=== PATIENT | female | born 1970 | race Caucasian/White ===

== ENCOUNTER → 2016-03-29 | Outpatient (REF) | payer OTHER ==
[~2016-03-29] MED LIST: ACET500C PO; AZO1TAB; BENA25TA PO; DEXI60CA PO; DICY10SO PO; DIPH12.527 PO; EPIP0.3I2 IJ; FLUTISP; PROA1AER IN; PROB1TAB PO; [UNRECOGNIZED DRUG - CODE] PO; [UNRECOGNIZED DRUG - OTHER] TOP
== END ==
LOC: M SMT 17:02
PROVIDERS: ATTEND Nurse Practitioner Family
DX: N20.0 Calculus of kidney (principal)

== ENCOUNTER → 2016-04-11 | Outpatient (REF) | payer OTHER ==
[~2016-04-11] MED LIST changes: -BENA25TA PO; +BENA25TA9 PO; +PREV15CA11 PO; +[UNRECOGNIZED DRUG - CODE] PO; +[UNRECOGNIZED DRUG - CODE] PO; +[UNRECOGNIZED DRUG - OTHER] PO
== END ==
LOC: M SMT 13:18
PROVIDERS: ATTEND Nurse Practitioner Family
DX: Z01.818 Encounter for other preprocedural examination (principal); R35.0 Frequency of micturition

== ENCOUNTER → 2016-04-20 | Day surgery (SDC) | payer OTHER ==
[~2016-04-20] VITALS: Ht 157.5 cm; Wt 73.9 kg
[~2016-04-20] MED LIST changes: +CONRAY-60 60% 50ML VIAL (Q9961) XX ONE; +KETOROLAC 30 MG/ML VIAL (J1885) As Ordered ONE; +KETOROLAC 30 MG/ML VIAL (J1885) IV SCH; +LIDOCAINE 2% INJ 100 MG/5 ML SDV (FOR ANES.) As Ordered ONE; +LR 1,000 ML IV SCH; +MEPERIDINE INJ 25 MG/ML VIAL (J2175) IV PRN; +METOCLOPRAMIDE INJ 10MG/2ML VIAL (J2765) As Ordered ONE; +METOCLOPRAMIDE INJ 10MG/2ML VIAL (J2765) IV PRN; +MIDAZOLAM INJ 2 MG/2 ML VIAL (J2250) As Ordered ONE; +ONDANSETRON 4MG/2ML VIAL (J2405) As Ordered ONE; +ONDANSETRON 4MG/2ML VIAL (J2405) IV PRN; +OXYC1TAB23 PO; +PERCOCET 5MG/325MG TAB PO PRN; +PROPOFOL 200 MG/20 ML VIAL As Ordered ONE; +fentaNYL 100 MCG/2 ML INJECTION (J3010) As Ordered ONE
[2016-04-20 13:56] LABS: CONTROL LINE UCG INT CTR LINE PRESENT
[2016-04-20] MEDS: fentaNYL 100 MCG/2 ML INJECTION (J3010) IV PRN ×2 (17:35→17:40)
[2016-04-20 19:45] VITALS: BP 126/63
--- NOTE | 2016-04-21 06:12 | RO ---
DATE OF PROCEDURE: 04/20/2016 PREPROCEDURE DIAGNOSIS: Left ureteral stone. POSTPROCEDURE DIAGNOSIS: Left ureteral stone. PROCEDURE: Cystoscopy, left ureteroscopy with basket extraction of stone. SURGEON: Dr. Casimiro Jacobs MOLD TOOLING TECHNICIAN: None. ANESTHESIA: General. OPERATIVE INDICATIONS: This is a 45-year-old female who was found to have an obstructing 3 mm left ureteropelvic junction stone. She was given a trial of passage and continued to have persistent pain raising concern that she did not pass her stone. She was therefore brought to the operating room today for the above listed procedure. DESCRIPTION OF PROCEDURE: The patient was brought to the operating room and general anesthesia was induced. Prophylactic antibiotics were infused. She was then placed in dorsal lithotomy position and prepped and draped in the usual sterile fashion. A rigid cystoscope was then inserted into the urethral meatus and advanced into the bladder. Once within the bladder, a wire was advanced up the left collecting system and secured to the drape to serve as a safety wire. I then went up the left ureter with a ureteroscope and of note no stones were seen within the ureter. The kidney was then thoroughly examined and within the lower pole calyx a 3 mm stone was seen. The stone must have been pushed back up into the kidney when the wire was advanced. The stone was then grasped with the basket and withdrawn from the left kidney. No additional stones were seen in either the kidney or the ureter. There did not appear to be much ureteral inflammation and therefore decision was made not to leave a stent. Therefore, the ureteroscope was withdrawn and the wire was removed. The bladder was then emptied of all fluid and this marked the conclusion of the procedure. The patient was then taken out of the dorsal lithotomy position, awakened from anesthesia and transported to the recovery room in stable condition. ESTIMATED BLOOD LOSS: 0 mL. COMPLICATIONS: None. SPECIMEN: Kidney stone. PLAN: The patient will be brought back to be seen in the clinic in a few weeks for a postoperative visit. JEANNA
== END ==
LOC: M SDC 12:20
PROVIDERS: ATTEND Urology
DX: N20.0 Calculus of kidney (principal); F41.9 Anxiety disorder, unspecified; J45.20 Mild intermittent asthma, uncomplicated; K21.9 Gastro-esophageal reflux disease without esophagitis; E78.5 Hyperlipidemia, unspecified; K58.9 Irritable bowel syndrome, unspecified; Z79.899 Other long term (current) drug therapy; Z91.011 Allergy to milk products; Z88.5 Allergy status to narcotic agent; Z88.1 Allergy status to other antibiotic agents; Z88.8 Allergy status to other drugs, medicaments and biological substances; Z87.442 Personal history of urinary calculi
CPT/HCPCS: 52352; 74420; 82360; 84703; 88300; C2617; J0690; J1885; J2250; J2405; J2765; J3010; Q9961

== ENCOUNTER → 2016-04-27 | Outpatient (REF) | payer OTHER ==
[~2016-04-27] MED LIST changes: -CONRAY-60 60% 50ML VIAL (Q9961) XX ONE; -KETOROLAC 30 MG/ML VIAL (J1885) As Ordered ONE; -KETOROLAC 30 MG/ML VIAL (J1885) IV SCH; -LIDOCAINE 2% INJ 100 MG/5 ML SDV (FOR ANES.) As Ordered ONE; -LR 1,000 ML IV SCH; -MEPERIDINE INJ 25 MG/ML VIAL (J2175) IV PRN; -METOCLOPRAMIDE INJ 10MG/2ML VIAL (J2765) As Ordered ONE; -METOCLOPRAMIDE INJ 10MG/2ML VIAL (J2765) IV PRN; -MIDAZOLAM INJ 2 MG/2 ML VIAL (J2250) As Ordered ONE; -ONDANSETRON 4MG/2ML VIAL (J2405) As Ordered ONE; -ONDANSETRON 4MG/2ML VIAL (J2405) IV PRN; -PERCOCET 5MG/325MG TAB PO PRN; -PROPOFOL 200 MG/20 ML VIAL As Ordered ONE; -fentaNYL 100 MCG/2 ML INJECTION (J3010) As Ordered ONE
== END ==
LOC: M SMT 12:51
PROVIDERS: ATTEND Nurse Practitioner Family
DX: R10.9 Unspecified abdominal pain (principal)

== ENCOUNTER → 2016-05-18 | Outpatient (CLI) | payer OTHER ==
--- NOTE | 2016-05-18 18:48 | REP ---
RENAL ULTRASOUND: REASON: Left flank pain status-post ureteroscopy last March. No prior renal ultrasound examinations for comparison. FINDINGS: Multiple ultrasonographic images of the right kidney show the right kidney to measure 11.3 x 4.8 x 4.5 cm. The left kidney measures 10.7 x 5.1 x 5.5 cm. The renal cortical echotexture is unremarkable. There are no masses. There is good corticomedullary differentiation. There is no hydronephrosis. There are no perinephric fluid collections. Multiple ultrasonographic images of the left kidney show the left kidney to measure . The renal cortical echotexture is unremarkable. There are no masses. There is good corticomedullary differentiation. There is no hydronephrosis. There are no perinephric fluid collections. Doppler of the urinary bladder shows color flow phenomena at each UV junction. Imaging of the urinary bladder shows a pre void urinary bladder volume calculation of 413 mL and a postvoid urinary bladder volume calculation of 16 mL. On imaging the urinary bladder, note was made of a 2.7 x 2.5 x 2.5 cm sized right ovarian anechoic structure which exhibited posterior wall enhancement and increased through transmission consistent with a cyst although when completely imaged on this renal ultrasound examination. The right ovarian RI was seen to be 0.53. IMPRESSION: 1. Essentially unremarkable bilateral renal ultrasound examination as described above. 2. Suspect simple right ovarian cyst, complete pelvic ultrasonography with transvaginal imaging is recommended for complete evaluation. Findings as described above. Signed by Lyndon Reyna DO 05/19/2016 11:15 A
== END ==
LOC: M RAD 15:37
PROVIDERS: ATTEND Nurse Practitioner Family
DX: R10.9 Unspecified abdominal pain (principal)

== ENCOUNTER 2016-09-29 06:54 | Day surgery (SDC) | payer OTHER ==
[2016-09-29] VITALS (8 sets, daily range): BP systolic 105–134; BP diastolic 55–66
[~2016-09-29] VITALS: Ht 154.9 cm; Wt 73.5 kg
[~2016-09-29 06:54] MED LIST changes: +BENA25TA10 PO; -BENA25TA9 PO; -DEXI60CA PO; +DEXI60CA2 PO; +LORA10TA2 PO; +MONT10TA2 PO; +PHEN200T22 PO; -PREV15CA11 PO; +PREV15CA18 PO; -PROA1AER IN; +PROAAER10 IN
[2016-09-29] MEDS ORDERED: LR 1,000 ML IV SCH ×2 (07:15→13:00)
[2016-09-29] MEDS ORDERED: LR 1,000 ML IV ONE (07:15)
[2016-09-29 07:21] LABS: MEAN CORPUSCULAR HEMOGLOBIN 28.5 pg (27.0-33.0); MEAN CORPUSCULAR HGB CONC 32.9 g/dl (32.0-36.5); MEAN CORPUSCULAR VOLUME 86.6 fl (80.0-96.0); WHITE BLOOD COUNT 9.7 K/mm3 (4.0-10.0)
[2016-09-29 07:41] LABS: CONTROL LINE UCG INT CTR LINE PRESENT
[2016-09-29] MEDS ORDERED: SCOPOLAMINE 1.5 MG TRANSDERMAL As Ordered ONE (07:56)
[2016-09-29] MEDS ORDERED: SCOPOLAMINE 1.5 MG TRANSDERMAL TOP ONE (08:00)
[2016-09-29] MEDS ORDERED: ROCURONIUM BROMIDE 50 MG/5 ML VIAL/SYRINGE As Ordered ONE (08:02)
[2016-09-29] MEDS ORDERED: ONDANSETRON 4MG/2ML VIAL (J2405) As Ordered ONE (08:02)
[2016-09-29] MEDS ORDERED: PROPOFOL 200 MG/20 ML VIAL As Ordered ONE (08:02)
[2016-09-29] MEDS ORDERED: MIDAZOLAM INJ 2 MG/2 ML VIAL (J2250) As Ordered ONE (08:02)
[2016-09-29] MEDS ORDERED: dexameTHASONE 4 MG/ML 1ML VIAL (J1100) As Ordered ONE (08:02)
[2016-09-29] MEDS ORDERED: LIDOCAINE 2% INJ 100 MG/5 ML SYRINGE As Ordered ONE (08:02)
[2016-09-29] MEDS ORDERED: fentaNYL 100 MCG/2 ML INJECTION (J3010) As Ordered ONE (08:03)
[2016-09-29] MEDS ORDERED: FLUTICASONE PROP 0.05% NASAL SPRAY 16 GM (FLONASE) PRN (09:00)
[2016-09-29] MEDS ORDERED: PANTOPRAZOLE 20 MG TAB PO SCH (09:00)
[2016-09-29] MEDS ORDERED: HYDROmorphone HCL 2 MG/ML 1ML VIAL (J1170) As Ordered ONE (09:21)
[2016-09-29] MEDS ORDERED: MORPHINE 1MG/ML IN 0.9% NACL 100ML IV BAG As Ordered ONE (12:37)
[2016-09-29] MEDS ORDERED: KETOROLAC 30 MG/ML VIAL (J1885) As Ordered ONE (12:42)
[2016-09-29] MEDS ORDERED: IBUPROFEN 600 MG TAB PO PRN (12:45)
[2016-09-29] MEDS ORDERED: PERCOCET 5MG/325MG TAB PO PRN (13:00)
[2016-09-29] MEDS ORDERED: ALBUTEROL 90 MCG/ACT 8GM HFA INHALER INH PRN (13:00)
[2016-09-29] MEDS ORDERED: KETOROLAC 30 MG/ML VIAL (J1885) IV PRN (13:00)
[2016-09-29] MEDS ORDERED: ONDANSETRON 4MG/2ML VIAL (J2405) IV PRN (13:00)
[2016-09-29] MEDS ORDERED: fentaNYL 100 MCG/2 ML INJECTION (J3010) IV PRN (13:00)
[2016-09-29] MEDS ORDERED: DICYCLOMINE 10 MG CAP PO PRN (13:00)
[2016-09-29] MEDS ORDERED: METOCLOPRAMIDE INJ 10MG/2ML VIAL (J2765) IV PRN (13:00)
[2016-09-29] MEDS ORDERED: MEPERIDINE INJ 25 MG/ML VIAL (J2175) IV PRN (13:00)
[2016-09-29] MEDS: MONTELUKAST 10 MG TAB PO SCH (14:51)
[2016-09-29] MEDS: LR 1,000 ML IV SCH ×2 (14:52→21:22)
[2016-09-30] VITALS: BP 111/50
[2016-09-30 04:00] VITALS: BP 93/51
[2016-09-30] MEDS: NORCO, ANEXSIA 5/325MG TABLET (HYDROcodone/ACETAMINOPHEN) PO PRN ×2 (06:33→10:11)
[2016-09-30 07:35] LABS: MEAN CORPUSCULAR VOLUME 87.8 fl (80.0-96.0); RED CELL DISTRIBUTION WIDTH 13.1 % (11.5-14.5); WHITE BLOOD COUNT 13.9 K/mm3 (4.0-10.0)
[2016-09-30 08:00] VITALS: BP 108/52
--- NOTE | 2016-09-30 08:52 | RO ---
DATE OF PROCEDURE: 09/29/2016 PREPROCEDURE DIAGNOSES: Pain, bleeding, symptomatic prolapse, dyspareunia. POSTPROCEDURE DIAGNOSES: Pain, bleeding, symptomatic prolapse, dyspareunia. PROCEDURE: Laparoscopic assisted vaginal hysterectomy with bilateral salpingo-oophorectomy, uterosacral suspension with AP repair and cystourethroscopy. SURGEON: Dr. Cristin Boland CHIEF LIFESTYLE OFFICER: Jessica Viveros. ANESTHESIA: General endotracheal anesthesia. ESTIMATED BLOOD LOSS: BRIEF DESCRIPTION OF PROCEDURE AND FINDINGS: Margarita was brought to the operating room where sufficient general endotracheal anesthesia was induced. She was prepped, draped and positioned in the usual sterile fashion with the bladder emptied and the uterine manipulator placed. Attention was turned to the abdomen where a transverse semilunar incision was made below the umbilicus. Sharp and blunt dissection were continued through the subcutaneous tissues to the level of the rectus fascia which was secured with #0 Vicryl retention sutures and the peritoneum was then entered under direct visualization. The Daniel cannula placed again under direct visualization in an open laparoscopic technique. CO2 insufflation was then begun. After adequate CO2 insufflation, the peritoneal cavity was visualized. There were normal shiny peritoneal surfaces throughout. There was some minor adhesions of the descending colon and then in the left pelvis as pictured on documentation over the ureterosacrals and the ureter, there was some minor scarring and what looked like powder burn petersen from endometriosis. The final path will of course give a better indication in that regard but least in that location there was some scarring of the tissues and some evidence that there may be some endometriosis there. There did not appear to be any endometriomas or any other large lesions and there was a focal area of implantation there with a plan to take out the ovaries. We did not cauterize this because it was overlying the ureter there, so I was concerned that doing so would injure it. We went ahead through the operative port on the scope and placed a 45 Enseal which we used to cauterize and transect the infundibulopelvic ligaments bilaterally and the round ligaments bilaterally and the superior aspect of the broad ligament. We then used just cold scissors to complete the dissection of the broad ligament working down across the anterior aspect of the uterus to create the bladder flap and the dropping the tissues down posteriorly to let those ureters sit more free of the ureterosacrals anticipating the uterosacral suspension. We then went ahead and worked below because the patient does have enough to descensus to do that. With the instruments removed but the trocar still in place, we went ahead and approached vaginally. We removed the uterine manipulator and then incised circumferentially around the base of the cervix to isolate the cardinal ligaments which were then clamped, transected and ligated using the supercut scissors, the Colin clamp and #0 Vicryl suture which was used throughout the hysterectomy portion of the case. We then clamped, transected and ligated the uterosacrals which were labeled for later use and continued the dissection anteriorly to join up with the dissection we had already done above and then clamped, transected and ligated the uterine vasculature in a sequential fashion along the lateral aspect of the uterus which was then delivered with the attached ovaries and tubes. We then visualized the pedicles which had good hemostasis and used the long Allis and the suture that was labeling then to place the uterosacrals on tension. We then grasped them for a high ureterosacral support with Allis clamps. We then passed two Prolene and one #0 Vicryl on each uterosacral and then dissected posteriorly the rectovaginal septum away from the vaginal cuff so that we could elevate both the cul-de-sac and close the space of the enterocele with a culdoplasty and then elevate the rectovaginal septum. We essentially did a Halban's culdoplasty and then elevated the septum with the uterosacral and we did this both on the left and right sides and with the inferior most or caudad most suture which was the #0 Vicryl so three sutures on each, two Prolene, one #0 Vicryl. The #0 Vicryl we brought out through the vagina dissecting very low through the rectovaginal septum so that we could maintain vaginal length for this patient for whom function was very much an issue and impacted the decision in regard to how much support and what type of support. We then tied down all these sutures and performed a cystoscopy and there was no flow on the patient's left side. We removed the Prolene sutures and we had flow so we were very careful the second time through to be somewhat less aggressive but of course, she has a cystocele and we did not want to being the cystocele across because that would have brought too much loss of depth but at the time same time, bringing the bladder up with the first set of stitches just to the bladder over kinked that ureter and obstructed flow so we were careful and working medially with the second placement and with cystoscopy, we could confirm that we had normal flow from that ureter. Then what we did is we did an AP repair starting at the apex removing a triangular segment of redundant vaginal tissue and then brought the ureterosacrals across closing side to side rather than front to back and then having resupported the tissues and done that modified AP, we then closed the cuff and still had decent depth and partial correction. Again it was not intended to be very aggressive because function for intercourse was definitely part of the patient's concern with the procedure so we worked hard to maintain as much depth as we could and not over correct. Using #0Vicryl, we closed the cuff and had good approximation and hemostasis and we then placed a Swanson and also closed the subumbilical incision using the #0 Vicryl retention sutures for the fascial layer and #3-0 Vicryl for the skin. Dry sterile dressing was then applied and the procedure was then ended. Estimated blood loss for the procedure about 50 mL. Fluid replacement was Crystalloid. Complications: None. Specimens: As already noted. CONDITION AND DISPOSITION: Margarita tolerated the procedure well and was recovering in the recovery room in good condition.
[2016-09-30] MEDS ORDERED: MOTR200T44 PO (09:32)
[2016-09-30] MEDS ORDERED: NORC1TAB4 PO (09:32)
[2016-09-30] MEDS: MONTELUKAST 10 MG TAB PO SCH (10:10)
== END 2016-09-30 10:20 | disposition home or self-care (01) ==
LOC: M SDC 06:54 → M PED 13:02 → M SDC 09-30 10:20
PROVIDERS: ATTEND Obstetrics & Gynecology
DX: N92.0 Excessive and frequent menstruation with regular cycle (principal); N81.9 Female genital prolapse, unspecified; N94.10 Unspecified dyspareunia; J45.909 Unspecified asthma, uncomplicated; N20.0 Calculus of kidney; G43.909 Migraine, unspecified, not intractable, without status migrainosus; E78.00 Pure hypercholesterolemia, unspecified; N87.9 Dysplasia of cervix uteri, unspecified; E66.9 Obesity, unspecified; K58.9 Irritable bowel syndrome, unspecified; K21.9 Gastro-esophageal reflux disease without esophagitis; M54.5 Low back pain; M12.9 Arthropathy, unspecified; R32 Unspecified urinary incontinence; Z88.1 Allergy status to other antibiotic agents; Z88.5 Allergy status to narcotic agent; Z88.8 Allergy status to other drugs, medicaments and biological substances; Z79.899 Other long term (current) drug therapy; Z86.19 Personal history of other infectious and parasitic diseases; Z87.442 Personal history of urinary calculi
CPT/HCPCS: 36415; 57260; 58552; 84703; 85027; 86850; 86900; 86901; 88309; 96374; J0690; J1100; J1170; J1885; J2250; J2405; J3010

== ENCOUNTER 2018-07-05 15:01 | Emergency (ER) | payer OTHER ==
[~2018-07-05] VITALS: Ht 157.5 cm; Wt 70.5 kg
[~2018-07-05 15:01] MED LIST changes: +FLUT50SP12; +LORA-243 PO; -LORA10TA2 PO; +MOTR200T44 PO; +NORC1TAB7 PO
[2018-07-05] MEDS ORDERED: NS 1,000 ML IV ONE (15:30)
[2018-07-05 15:56] LABS: BASO % 0.3 % (0.0-1.0); EOS # 0.2 10^3/uL (0.0-0.50); EOS % 1.9 % (0.0-3.0); HEMATOCRIT 41.9 % (36.0-47.0); HEMOGLOBIN 13.8 g/dl (12.0-15.5); LYMPH # 3.3 10^3/uL (1.5-4.5); LYMPH % 34.1 % (24.0-44.0); MEAN CORPUSCULAR HEMOGLOBIN 28.5 pg (27.0-33.0); MEAN CORPUSCULAR HGB CONC 32.9 g/dl (32.0-36.5); MEAN CORPUSCULAR VOLUME 86.6 fl (80.0-96.0); MONO # 0.5 10^3/uL (0.0-0.8); MONO % 5.6 % (0.0-5.0); NEUTROPHILS # 5.6 10^3/uL (1.8-7.7); NEUTROPHILS % 57.9 % (36.0-66.0); PLATELET COUNT, AUTOMATED 277 10^3/uL (150-450); RED BLOOD COUNT 4.84 10^6/uL (4.00-5.40); WHITE BLOOD COUNT 9.6 10^3/uL (4.0-10.0)
[2018-07-05] MEDS ORDERED: AZEL0.1S NARES (16:02)
[2018-07-05 16:22] LABS: ALBUMIN 4.1 GM/DL (3.2-5.2); ALT/SGPT 25 U/L (12-78); AMYLASE 82 U/L (25-115); BILIRUBIN,DIRECT < 0.1 MG/DL (0.0-0.2); BILIRUBIN,TOTAL 0.3 MG/DL (0.2-1.0); BLOOD UREA NITROGEN 16 MG/DL (7-18); CALCIUM LEVEL 9.1 MG/DL (8.5-10.1); CARBON DIOXIDE LEVEL 28 MEQ/L (21-32); CHLORIDE LEVEL 106 MEQ/L (98-107); CREATININE FOR GFR 1.04 MG/DL (0.55-1.30); GLOMERULAR FILTRATION RATE > 60.0 (>58); GLUCOSE, FASTING 144 MG/DL (70-100); LIPASE 431 U/L (73-393); POTASSIUM SERUM 3.8 MEQ/L (3.5-5.1); SODIUM LEVEL 140 MEQ/L (136-145); TOTAL PROTEIN 7.7 GM/DL (6.4-8.2)
--- NOTE | 2018-07-05 16:24 | REP ---
HISTORY: Bilateral flank pain. COMPARISON: None. The lung bases are clear. There is mild right-sided hydronephrosis. In the proximal right ureter there is a 5 mm sized calcification. In the interpolar region of the right kidney there is a 2 mm sized calcification. There are no left nephroliths or ureteroliths. There is no left-sided hydronephrosis. There are no urinary bladder calcifications. Limited evaluation of the solid intraabdominal organs and gallbladder show no gross abnormalities. Limited evaluation of the pancreas and adrenal glands show no gross abnormalities. There is no free fluid or free air in the abdomen or pelvis. The bowel loops and the mesenteries are within normal limits. The imaged osseous structures are within normal limits. IMPRESSION: Proximal right ureterolith and right-sided nephrolith as described above. There is resultant mild hydronephrosis and proximal hydroureter. Electronically Signed by Lyndon Reyna DO 07/05/2018 04:29 P
[2018-07-05] MEDS ORDERED: KETO10TAB PO (17:06)
[2018-07-05 17:16] VITALS: BP 101/60
== END 2018-07-05 19:05 | disposition home or self-care (01) ==
LOC: M ED 15:01
DX: N20.1 Calculus of ureter (principal); Z79.899 Other long term (current) drug therapy; Z88.1 Allergy status to other antibiotic agents; Z88.5 Allergy status to narcotic agent; Z88.8 Allergy status to other drugs, medicaments and biological substances

== ENCOUNTER → 2023-03-24 | Outpatient (REF) | payer OTHER ==
[~2023-03-24] MED LIST changes: +AZEL0.1S NARES; +KETO10TAB PO; -MONT10TA2 PO; +MONT10TA97 PO; -PREV15CA18 PO; +PREV15CA24 PO
== END ==
LOC: M SMT 16:55
PROVIDERS: ATTEND Physician Assistant
DX: N20.1 Calculus of ureter (principal)

== ENCOUNTER → 2023-05-26 | Outpatient (REF) | payer OTHER ==
[2023-05-26 17:24] LABS: AMORPHOUS SEDIMENT MODERATE (NEGATIVE); APPEARANCE, URINE TURBID (CLEAR); BACTERIA, URINE AUTO NEGATIVE (NEGATIVE); BILIRUBIN, URINE AUTO NEGATIVE (NEGATIVE); BLOOD, URINE BLOOD 1+ (NEGATIVE); COLOR, URINE YELLOW (YELLOW); GLUCOSE, URINE (UA) AUTO NEGATIVE (NEGATIVE); KETONE, URINE AUTO NEGATIVE (NEGATIVE); LEUKOCYTE ESTERASE, URINE AUTO NEGATIVE (NEGATIVE); MUCUS, URINE SMALL (NEGATIVE); NITRITE, URINE AUTO NEGATIVE (NEGATIVE); PROTEIN, URINE AUTO NEGATIVE (NEGATIVE); RBC, URINE AUTO 0 /HPF (0-3); SPECIFIC GRAVITY URINE AUTO 1.025 (1.002-1.035); SQUAMOUS EPITHELIAL CELL UR AU 7 /HPF (0-6); UROBILINOGEN, URINE AUTO 0.2 mg/dL (0.0-2.0); WBC, URINE AUTO 0 /HPF (0-3)
== END ==
LOC: M SMT 17:01
PROVIDERS: ATTEND Physician Assistant
DX: R31.21 Asymptomatic microscopic hematuria (principal)

== ENCOUNTER → 2023-11-17 | Outpatient (REF) | payer OTHER ==
[2023-11-17 17:31] LABS: APPEARANCE, URINE CLEAR (CLEAR); BACTERIA, URINE AUTO NEGATIVE (NEGATIVE); BILIRUBIN, URINE AUTO NEGATIVE (NEGATIVE); BLOOD, URINE BLOOD 2+ (NEGATIVE); COLOR, URINE STRAW (YELLOW); GLUCOSE, URINE (UA) AUTO NEGATIVE (NEGATIVE); KETONE, URINE AUTO NEGATIVE (NEGATIVE); LEUKOCYTE ESTERASE, URINE AUTO NEGATIVE (NEGATIVE); NITRITE, URINE AUTO NEGATIVE (NEGATIVE); PROTEIN, URINE AUTO NEGATIVE (NEGATIVE); RBC, URINE AUTO 0 /HPF (0-3); SPECIFIC GRAVITY URINE AUTO 1.011 (1.002-1.035); SQUAMOUS EPITHELIAL CELL UR AU 0 /HPF (0-6); UROBILINOGEN, URINE AUTO 0.2 mg/dL (0.0-2.0); WBC, URINE AUTO 1 /HPF (0-3)
== END ==
LOC: M SMT 16:53
PROVIDERS: ATTEND Physician Assistant
DX: R31.21 Asymptomatic microscopic hematuria (principal)